=== PATIENT | male | born 1975 | race Caucasian/White ===

== ENCOUNTER 2023-07-22 09:01 | Outpatient (CLI) | payer OTHER, SELFPAY | END 2023-07-22 09:02 | disposition home or self-care (01) | LOC: NFLDREF 07-24 06:31 | PROVIDERS: Visit Provider Physician Assistant Medical | DX: Z00.00 Encounter for general adult medical examination without abnormal findings (principal); Z13.6 Encounter for screening for cardiovascular disorders; Z13.29 Encounter for screening for other suspected endocrine disorder | CPT/HCPCS: 80053; 80061; 84443 ==